=== PATIENT | male | born 1995 | race Two or more races ===

== ENCOUNTER 2023-11-15 13:33 | Inpatient (IN) | payer OTHER ==
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
[2023-11-15 14:14] LABS: Basophils # (A) 0.1 k/uL (0-0.2); Basophils % (A) 1 %; Eosinophils # (A) 0.1 k/uL (0-0.7); Eosinophils % (A) 1 %; HCT 46.2 % (39.0-53.0); HGB 15.2 gm/dL (13.0-17.5); Lymphocytes # (A) 1.9 k/uL (1.0-4.8); Lymphocytes % (A) 29 %; MCH 29.9 pg (25.0-35.0); MCHC 32.8 g/dL (31.0-37.0); MCV 91.1 fL (80.0-100.0); Mean Platelet Volume 7.9; Monocytes # (A) 0.3 k/uL (0-1.0); Monocytes % (A) 5 %; Neutrophils # (A) 4.1 k/uL (1.3-7.7); Neutrophils % (A) 63 %; Platelet Count 242 k/uL (150-450); RBC 5.07 m/uL (4.30-5.90); RDW 12.3 % (11.5-15.5); WBC 6.5 k/uL (3.8-10.6)
[2023-11-15 14:27] LABS: ALT 35 U/L (4-49); AST 60 U/L (17-59); African American GFR (CKD) >90 (>60 ml/min/1.73 sqM); Albumin 4.1 g/dL (3.5-5.0); Alkaline Phosphatase 95 U/L (38-126); Anion Gap 11 mmol/L; Blood Urea Nitrogen 15 mg/dL (9-20); Calcium 8.3 mg/dL (8.4-10.2); Carbon Dioxide 29 mmol/L (22-30); Chloride 110 mmol/L (98-107); Glucose 117 mg/dL (74-99); Non-African American GFR(CKD) >90 (>60 ml/min/1.73 sqM); Potassium 3.4 mmol/L (3.5-5.1); Sodium 150 mmol/L (137-145); Total Bilirubin 0.6 mg/dL (0.2-1.3); Total Protein 6.4 g/dL (6.3-8.2)
[2023-11-15 14:31] LABS: INR 1.3 (<1.2); Partial Thromboplastin Time 25.7 sec (22.0-30.0); Prothrombin Time 14.1 sec (10.0-12.5)
[2023-11-15 14:59] LABS: Alcohol 499 mg/dL
--- NOTE | 2023-11-15 15:44 | XR ---
EXAMINATION TYPE: XR chest 2V DATE OF EXAM: 11/15/2023 COMPARISON: None HISTORY: 28-year-old male confusion, altered mental status, possible overdose TECHNIQUE: AP and lateral views FINDINGS: Heart normal size. Aorta and pulmonary vasculature within normal limits. Hazy densities related to ov erlying soft tissue. No consolidation or pleural effusion. IMPRESSION: No definite acute process. [facility], Workstation: [facility], 11/15/2023 3:42 PM
[2023-11-15] MEDS ORDERED: NALOXONE 0.4 MG/ML 1 ML VIAL IV PRN (16:05)
[2023-11-15] MEDS ORDERED: LORazepam 1 MG TAB PO PRN (16:11)
[2023-11-15] MEDS: POTASSIUM CHLORIDE 10 MEQ in WATER FOR INJECTION 1 100ML.BAG IVPB SCH (16:18)
[2023-11-15] MEDS: DEXTROSE 5%-0.45% NACL 1,000 ML IV ONE (16:18)
[2023-11-15] MEDS: THIAMINE 100 MG/ML 2 ML VIAL IM STA (16:27)
[2023-11-15] MEDS: SODIUM CHLORIDE 0.9% 1,000 ML IV SCH (16:30)
[2023-11-15 16:35] LABS: Amphetamine Screen,Urine Not Detected (NotDetected); Barbiturate Screen,Urine Not Detected (NotDetected); Benzodiazepines Screen,Urine Not Detected (NotDetected); Cocaine Screen,Urine Not Detected (NotDetected); Methadone Screen, Urine Not Detected (NotDetected); Opiate Screen,Urine Not Detected (NotDetected); Oxycodone Screen, Urine Not Detected (NotDetected); Phencyclidine Screen,Urine Not Detected (NotDetected); Tricyclic Antidepressant,Urine Not Detected (NotDetected); Urn Cannabinoid Scrn Not Detected (NotDetected)
[2023-11-15] MEDS ORDERED: LORazepam 2 MG/ML INJ IV PRN ×3 (17:12)
--- NOTE | 2023-11-15 17:21 | P.HPIM ---
History of Present Illness H&P Date: 11/15/23 History of Presenting Illness: Patient is a 28-year-old male with a past medical history of polysubstance abuse and alcohol abuse with previous history of alcohol withdrawal seizures. He presented to the emergency department via EMS and with police escort after being found behind the [place] behind [employer]. Per girlfriend at bedside, patient was reported as a missing person approximately 36 hours prior to being found. Patient reports heavy daily drinking of approximately a pint per day and denies having any polysubstance abuse, however patient's girlfriend does report that his father was concerned as he has a history of using "everything". Patient r eports that he feels "great" and denies having any falls or injuries, states he was just hanging out and drinking a lots of alcohol and his phone so he did not call anyone. Patient currently alert to person, place, time, and situation. He is giggling often and laughing inappropriately at times which is understandable in regards to his alcohol intoxication. No obvious signs of physical injuries noted upon arrival to our facility. Patient underwent evaluation in the emergency department. Vital signs upon arrival show blood pressure 128/82, heart rate 119, respiratory rate 18, temp 98.0 F, and SpO2 of 98% on room air. EKG was completed showing sinus tachycardia at 107 bpm with no noted T wave or ST abnormality showing no signs of acute ischemia upon personal review and interpretation. Chest x-ray completed negative for acute cardiopulmonary process. Labs were completed and reviewed. CBC was unremarkable. Coagulation profile showing elevated PT of 14.1 and INR of 1.3. BMP showing hypernatremia with sodium of 150, hypokalemia with potassium of 3.4, and none anion gap metabolic acidosis with chloride of 110, bicarb of 29, and anion gap of 11. Blood glucose 117. Magnesium normal findings at 2.3. Liver profile showing elevated AST of 60 otherwise normal findings. Serum alcohol level was 499. Urine drug screen was negative. Patient was admitted under our services for alcohol intoxication and pending medical detox. Review of systems: Pertinent positives and negatives as discussed in HPI, a complete review of systems was performed and all other systems are negative. Physical exam: Vital signs reviewed and stable. General: Nontoxic, no distress and appears stated age. Derm: Skin warm and dry, normal coloration for ethnicity. Head: Atraumatic, normocephalic and symmetric. Eyes: EOM's intact, no lid lag, and anicteric sclera Mouth: no lip lesions, mucus membranes moist Cardiovascular: regular rate and rhythm with normal S1S2, no murmur, positive posterior tibial pulses bilaterally, and cap refill < 2 seconds. Lungs: Respirations even, regular, and unlabored on room air. Lungs CTA bilaterally, no rhonchi, no rales, no wheezing, and no accessory muscle usage. Abdominal: soft, nontender to palpation, no guarding, no appreciable organomegaly Ext: ROM intact. No gross muscle atrophy, no edema, no contractures Neuro: Speech clear, face symmetrical and CN II-XII grossly intact with no noted focal neuro deficits Psych: Alert and oriented to person, place, time, and situation. Appropriate and pleasant affect. Assessment and Plan of Care: Alcohol intoxication in active alcoholic Hypernatremia Metabolic acidosis Hypokalemia Elevated INR, secondary to alcohol abuse Elevated liver enzyme, secondary to alcohol abuse History of polysubstance abuse History of alcohol withdrawal seizures -Order placed for monitoring of CIWA scores and patient to be medicated with Ativan 0.5 mg every 4 hours as needed for CIWA score of 4-5, Ativan 1 mg every 4 hours for CIWA score of 6-7, Ativan 2 mg every 3 hours CIWA score of 8-9, and Ativan 2 mg every 2 hours forr CIWA score of 10 or greater. -Continuous IV hydration with D5 0.45% NS at 100 cc/h. Will repeat sodium levels later this evening at 10 PM and again tomorrow morning. -Order placed for potassium chloride 10 mEq IVPB x 4 doses totaling 40 mEq. -Thiamine 100 mg daily, and Multivitamin daily, and Folate 1 mg daily -Seizure, fall, aspiration, and elopement precautions in place. -Urine drug screen -Continued close monitoring of electrolytes and replace as needed. -Telemetry monitoring. Data and imaging reviewed: As stated above in HPI The patient is admitted with an anticipated greater than 2 midnight stay for evaluation of hyponatremia, alcohol intoxication pending withdrawal in active alcoholic CODE STATUS: Full code DVT prophylaxis: Lovenox Anticipated discharge date: Pending clinical course Anticipated discharge place: Home Patient was seen independently by Nurse Practitioner. This document was prepared using [employer] dictation software. Please allow for errors in boxing promoter while rare they do occur. Lj Howard NP rendered care for this patient independently, reviewed the findings and plan as documented in the note above. I did not physically speak with or examine the patient on this date Past Medical History Past Medical History: Seizure Disorder Additional Past Medical History / Comment(s): seizures from ETOH History of Any Multi-Drug Resistant Organisms: None Reported Past Surgical History: No Surgical Hx Reported Past Psychological History: No Psychological Hx Reported Smoking Status: Vaper Past Alcohol Use History: Abuse, Daily, Heavy Past Drug Use History: Opiates - Past Family History Mother Additional Family Medical History / Comment(s): meth use Father Additional Family Medical History / Comment(s): meth use Medications and Allergies Home Medications Medication Instructions Recorded Confirmed Type DULoxetine HCL [Cymbalta] 30 mg PO DAILY 11/15/23 11/15/23 History Allergies Allergy/AdvReac Type Severity Reaction Status Date / Time Penicillins Allergy Severe Anaphylaxis Verified 11/15/23 15:58 shellfish derived [Shellfish] Allergy Severe Anaphylaxis Verified 11/15/23 15:58 Physical Exam Vitals: Vital Signs Temp Pulse Resp BP Pulse Ox 11/15/23 15:16 87 18 114/76 97 11/15/23 13:38 98 F 119 H 18 128/82 98 Intake and Output 11/15/23 11/15/23 11/15/23 06:59 14:59 22:59 Other: Weight 68.039 kg Results CBC & Chem 7: 11/16/23 04:48 11/16/23 04:48 Labs: Abnormal Lab Results - Last 24 Hours (Table) 11/15/23 11/15/23 Range/Units 13:56 13:56 PT 14.1 H (10.0-12.5) sec INR 1.3 H (<1.2) Sodium 150 H (137-145) mmol/L Potassium 3.4 L (3.5-5.1) mmol/L Chloride 110 H (98-107) mmol/L Glucose 117 H (74-99) mg/dL Calcium 8.3 L (8.4-10.2) mg/dL AST 60 H (17-59) U/L Serum Alcohol 499 H* mg/dL
[2023-11-15] MEDS: SODIUM CHLORIDE 0.9% 500 ML 500 ML IV STA (18:28)
[2023-11-15] MEDS: FAMOTIDINE 20 MG TAB PO SCH (20:23)
[2023-11-15 22:32] LABS: African American GFR (CKD) >90 (>60 ml/min/1.73 sqM); Anion Gap 11 mmol/L; Blood Urea Nitrogen 12 mg/dL (9-20); Carbon Dioxide 27 mmol/L (22-30); Chloride 109 mmol/L (98-107); Glucose 117 mg/dL (74-99); Non-African American GFR(CKD) >90 (>60 ml/min/1.73 sqM); Potassium 3.5 mmol/L (3.5-5.1); Sodium 147 mmol/L (137-145)
[2023-11-16 08:47] LABS: HCT 43.2 % (39.6-50.0); HGB 14.7 g/dL (13.0-17.0); MCH 30.2 pg (27.0-32.0); MCV 88.7 FL (80.0-97.0); Mean Platelet Volume 10.6 FL (9.5-12.2); NRBC Per 100 WBC 0 X 10*3/uL (0.00-0.01); Platelet Count 210 X 10*3/uL (140-440); RBC 4.87 X 10*6/uL (4.40-5.60); RDW 11.7 % (11.5-14.5); WBC 5.52 X 10*3/uL (4.50-10.00)
[2023-11-16] MEDS: THIAMINE 100 MG TAB PO SCH (09:33)
[2023-11-16] MEDS: MULTIVITAMINS, THERA 1 EACH TAB PO SCH (09:33)
[2023-11-16] MEDS: FOLIC ACID 1 MG TAB PO SCH (09:33)
[2023-11-16] MEDS: ENOXAPARIN 40 MG/0.4 ML SYRINGE SQ SCH (09:33)
[2023-11-16] MEDS: DULoxetine HCL 30 MG CAPSULE.DR PO SCH (10:14)
[2023-11-16] MEDS: LORazepam 1 MG TAB PO PRN ×2 (10:18→16:49)
[2023-11-16 10:45] LABS: ALT 30 U/L (10-49); AST 44 U/L (14-35); Albumin 3.8 g/dL (3.8-4.9); Albumin/Globulin Ratio 2.11 Ratio (1.60-3.17); Alkaline Phosphatase 105 U/L (41-126); BUN/Creat Ratio 15.71 Ratio (12.00-20.00); Carbon Dioxide 24.2 mmol/L (21.6-31.8); Chloride 109 mmol/L (96-109); Globulin 1.8 g/dL (1.6-3.3); Glucose 95 mg/dL (70-110); Potassium 3.8 mmol/L (3.5-5.5); Sodium 145 mmol/L (135-145); Total Bilirubin 0.7 mg/dL (0.3-1.2); Total Protein 5.6 g/dL (6.2-8.2)
--- NOTE | 2023-11-16 14:02 | P.PN ---
Subjective Progress Note Date: 11/16/23 Hospital course: Patient is a 28-year-old male with a past medical history of polysubstance abuse and alcohol abuse with previous history of alcohol withdrawal seizures. He presented to the emergency department via EMS and with police escort after being found behind the [place] [employer]. Per girlfriend at bedside, patient was reported as a missing person approximately 36 hours prior to being found. Patient reports heavy daily drinking of approximately a pint per day and denies having any polysubstance abuse, however patient's girlfriend does report that his father was concerned as he has a history of using "everything". Patient reports that he feels "great" and denies having any falls or injuries, states he was just hanging out and drinking a lots of alcohol and his phone so he did not call anyone. Patient currently alert to person, place, time, and situation. He is giggling often and laughing inappropriately at times which is understan dable in regards to his alcohol intoxication. No obvious signs of physical injuries noted upon arrival to our facility. Patient underwent evaluation in the emergency department. Vital signs upon arrival show blood pressure 128/82, heart rate 119, respiratory rate 18, temp 98.0 F, and SpO2 of 98% on room air. EKG was completed showing sinus tachycardia at 107 bpm with no noted T wave or ST abnormality showing no signs of acute ischemia upon personal review and interpretation. Chest x-ray completed negative for acute cardiopulmonary process. Labs were completed and reviewed. CBC was unremarkable. Coagulation profile showing elevated PT of 14.1 and INR of 1.3. BMP showing hypernatremia with sodium of 150, hypokalemia with potassium of 3.4, and none anion gap metabolic acidosis with chloride of 110, bicarb of 29, and anion gap of 11. Blood glucose 117. Magnesium normal findings at 2.3. Liver profile showing elevated AST of 60 otherwise normal findings. Serum alcohol level was 499. Urine drug screen was negative. Patient was admitted under our services for alcohol intoxication and pending medical detox. Shortly after admission, patient expressed concerns of suicidal ideations to RN. A petition was completed and placed on patient's chart. Patient placed in suicide precautions and consult was placed to psychiatry. Physical exam: Patient was seen and fully evaluated at bedside this morning. Sitter remains at bedside maintaining safety. Patient with mild tremors and appears fidgety and anxious. Patient informed we will continue with Ativan per CIWA protocol and he is awaiting to see psychiatry. Patient verbalized understanding. Reports feeling nauseous and anxious at this time but denies any other complaints at this time. Vital signs reviewed and stable. General: Nontoxic, no distress and appears stated age. Derm: Skin warm and dry, normal coloration for ethnicity. Head: Atraumatic, normocephalic and symmetric. Eyes: EOM's intact, no lid lag, and anicteric sclera Mouth: no lip lesions, mucus membranes moist Cardiovascular: regular rate and rhythm with normal S1S2, no murmur, positive posterior tibial pulses bilaterally, and cap refill < 2 seconds. Lungs: Respirations even, regular, and unlabored on room air. Lungs CTA bilaterally, no rhonchi, no rales, no wheezing, and no accessory muscle usage. Abdominal: soft, nontender to palpation, no guarding, no appreciable organomegaly Ext: ROM intact. No gross muscle atrophy, no edema, no contractures Neuro: Speech clear, face symmetrical and CN II-XII grossly intact with no noted focal neuro deficits. Mild tremors noted at rest. Psych: Alert and oriented to person, place, time, and situation. Anxious and fidgety. Assessment and Plan of Care: Alcohol intoxication in active alcoholic Hypernatremia Metabolic acidosis Hypokalemia Elevated INR, secondary to alcohol abuse Elevated liver enzyme, secondary to alcohol abuse History of polysubstance abuse History of alcohol withdrawal seizures -Continue monitoring of CIWA scores and patient to be medicated with Ativan 0.5 mg every 4 hours as needed for CIWA score of 4-5, Ativan 1 mg every 4 hours for CIWA score of 6-7, Ativan 2 mg every 3 hours CIWA score of 8-9, and Ativan 2 mg every 2 hours forr CIWA score of 10 or greater. -Hypernatremia resolved after IV fluid hydration with D5.45. Current sodium 145. -Continue thiamine 100 mg daily, and Multivitamin daily, and Folate 1 mg daily -Continue seizure, fall, aspiration, and elopement precautions. -Urine drug screen was negative. -Continued close monitoring of electrolytes and replace as needed. -Telemetry monitoring. Suicidal ideations -Maintain strict suicide precautions. -Psychiatry consulted. Data and imaging reviewed: Morning labs completed and reviewed. CBC unremarkable. BMP showing resolution of hypernatremia with morning sodium of 145. Liver profile showing elevated AST of 44 otherwise normal findings. Vital signs reviewed. Blood pressure 115/72, heart rate 88, respiratory rate 16, temp 98.1 F, and SpO2 of 98% on room air. CODE STATUS: Full code DVT prophylaxis: Lovenox Anticipated discharge date: Pending clinical course Anticipated discharge place: Home Patient was seen independently by Nurse Practitioner. This document was prepared using [employer] dictation software. Please allow for errors in watch mechanic while rare they do occur. Lj Howard NP rendered care for this patient independently, reviewed the findings and plan as documented in the note above. I did not physically speak with or examine the patient on this date Objective - Vital Signs Vital signs: Vital Signs Temp 98.1 F 11/16/23 02:10 Pulse 70 11/16/23 02:10 Resp 17 11/16/23 02:10 BP 125/77 11/16/23 02:10 Pulse Ox 98 11/16/23 02:10 FiO2 Intake & Output 11/15/23 11/16/23 11/16/23 18:59 06:59 18:59 Intake Total 1200 Balance 1200 Weight 68.039 kg Intake: Oral 1200 Other: Voiding Method Toilet # Voids 6 - Labs CBC & Chem 7: 11/16/23 04:48 11/16/23 04:48 Labs: Abnormal Lab Results - Last 24 Hours (Table) 11/15/23 11/15/23 11/15/23 Range/Units 13:56 13:56 21:55 PT 14.1 H (10.0-12.5) sec INR 1.3 H (<1.2) Sodium 150 H 147 H (137-145) mmol/L Potassium 3.4 L (3.5-5.1) mmol/L Chloride 110 H 109 H (98-107) mmol/L Creatinine 0.63 L (0.66-1.25) mg/dL Glucose 117 H 117 H (74-99) mg/dL Calcium 8.3 L 8.0 L (8.4-10.2) mg/dL AST 60 H (17-59) U/L Serum Alcohol 499 H* mg/dL
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
--- NOTE | 2023-11-17 16:43 | P.PN ---
Subjective Progress Note Date: 11/17/23 Hospital course: Patient is a 28-year-old male with a past medical history of polysubstance abuse and alcohol abuse with previous history of alcohol withdrawal seizures. He presented to the emergency department via EMS and with police escort after being found behind the [employer] behind [employer]. Per girlfriend at bedside, patient was reported as a missing person approximately 36 hours prior to being found. Patient reports heavy daily drinking of approximately a pint per day and denies having any polysubstance abuse, however patient's girlfriend does report that his father was concerned as he has a history of using "everything". Patient reports that he feels "great" and denies having any falls or injuries, states he was just hanging out and drinking a lots of alcohol and his phone so he did not call anyone. Patient currently alert to person, place, time, and situation. He is giggling often and laughing inappropriately at times which is understan dable in regards to his alcohol intoxication. No obvious signs of physical injuries noted upon arrival to our facility. Patient underwent evaluation in the emergency department. Vital signs upon arrival show blood pressure 128/82, heart rate 119, respiratory rate 18, temp 98.0 F, and SpO2 of 98% on room air. EKG was completed showing sinus tachycardia at 107 bpm with no noted T wave or ST abnormality showing no signs of acute ischemia upon personal review and interpretation. Chest x-ray completed negative for acute cardiopulmonary process. Labs were completed and reviewed. CBC was unremarkable. Coagulation profile showing elevated PT of 14.1 and INR of 1.3. BMP showing hypernatremia with sodium of 150, hypokalemia with potassium of 3.4, and none anion gap metabolic acidosis with chloride of 110, bicarb of 29, and anion gap of 11. Blood glucose 117. Magnesium normal findings at 2.3. Liver profile showing elevated AST of 60 otherwise normal findings. Serum alcohol level was 499. Urine drug screen was negative. Patient was admitted under our services for alcohol intoxication and pending medical detox. Shortly after admission, patient expressed concerns of suicidal ideations to RN. A petition was completed and placed on patient's chart. Patient placed in suicide precautions and consult was placed to psychiatry. Physical exam: Patient was seen and fully evaluated at bedside this morning. Sitter remains at bedside maintaining safety/suicide precautions. Patient with mild tremors and expresses feeling anxious and nauseous this morning.. Current CIWA score is 8. Vital signs reviewed and stable. General: Nontoxic, no distress and appears stated age. Derm: Skin warm and dry, normal coloration for ethnicity. Head: Atraumatic, normocephalic and symmetric. Eyes: EOM's intact, no lid lag, and anicteric sclera Mouth: no lip lesions, mucus membranes moist Cardiovascular: regular rate and rhythm with normal S1S2, no murmur, positive posterior tibial pulses bilaterally, and cap refill < 2 seconds. Lungs: Respirations even, regular, and unlabored on room air. Lungs CTA bilaterally, no rhonchi, no rales, no wheezing, and no accessory muscle usage. Abdominal: soft, nontender to palpation, no guarding, no appreciable organomegaly Ext: ROM intact. No gross muscle atrophy, no edema, no contractures Neuro: Speech clear, face symmetrical and CN II-XII grossly intact with no noted focal neuro deficits. Mild tremors noted at rest. Psych: Alert and oriented to person, place, time, and situation. Anxious and fidgety. Assessment and Plan of Care: Alcohol intoxication in active alcoholic Hypernatremia Metabolic acidosis Hypokalemia Elevated INR, secondary to alcohol abuse Elevated liver enzyme, secondary to alcohol abuse History of polysubstance abuse History of alcohol withdrawal seizures -Continue monitoring of CIWA scores and patient to be medicated with Ativan 0.5 mg every 4 hours as needed for CIWA score of 4-5, Ativan 1 mg every 4 hours for CIWA score of 6-7, Ativan 2 mg every 3 hours CIWA score of 8-9, and Ativan 2 mg every 2 hours forr CIWA score of 10 or greater. Patient has received a total of 9 mg of Ativan over the past 24 hours. Current CIWA score is 8. -Hypernatremia resolved after IV fluid hydration with D5.45. Current sodium 145. -Continue thiamine 100 mg daily, and Multivitamin daily, and Folate 1 mg daily -Continue seizure, fall, aspiration, and elopement precautions. -Urine drug screen was negative. -Continued close monitoring of electrolytes and replace as needed. -Telemetry monitoring. Suicidal ideations -Maintain strict suicide precautions. -Psychiatry consulted and evaluated patient recommending inpatient transfer to mental health unit once medically stable. Patient has required a total of 9 mg of Ativan over the past 24 hours for CIWA protocol, will monitor for improvement and plan to discharge to inpatient mental health unit likely tomorrow. Data and imaging reviewed: Morning labs completed and reviewed. CBC unremarkable. BMP showing resolution of hypernatremia with morning sodium of 145. Liver profile showing elevated AST of 44 otherwise normal findings. Vital signs reviewed. Blood pressure 145/75, heart rate 55, respiratory rate 17, temp 98.4 F, and SpO2 100% on room air. CODE STATUS: Full code DVT prophylaxis: Lovenox Anticipated discharge date: Pending clinical course, likely tomorrow pending improving CIWA scores. Anticipated discharge place: Discharge to inpatient mental health unit Patient was seen independently by Nurse Practitioner. This document was prepared using [employer] dictation software. Please allow for errors in tool carrier while rare they do occur. I reviewed the documentation as provided by the YOMI above, who is the original author of this note. I agree with the documented assessment and plan, with the following changes: none Objective - Vital Signs Vital signs: Vital Signs Temp 98.7 F 11/16/23 19:22 Pulse 76 11/16/23 19:22 Resp 16 11/16/23 19:22 BP 118/74 11/16/23 19:22 Pulse Ox 98 11/16/23 19:22 FiO2 Intake & Output 11/16/23 11/17/23 11/17/23 18:59 06:59 18:59 Intake Total 450 Balance 450 Intake: Oral 450 Other: Voiding Method Toilet # Voids 3 - Labs CBC & Chem 7: 11/16/23 04:48 11/16/23 04:48 Labs: Abnormal Lab Results - Last 24 Hours (Table) 11/16/23 Range/Units 04:48 Calcium 8.0 L (8.7-10.3) mg/dL AST 44 H (14-35) U/L Total Protein 5.6 L (6.2-8.2) g/dL
[2023-11-18 08:26] VITALS: RESP 20
[2023-11-18 08:55] LABS: HCT 42.8 % (39.6-50.0); HGB 14.4 g/dL (13.0-17.0); MCH 29.8 pg (27.0-32.0); MCHC 33.6 g/dL (32.0-37.0); MCV 88.6 FL (80.0-97.0); Mean Platelet Volume 11.2 FL (9.5-12.2); NRBC Per 100 WBC 0 X 10*3/uL (0.00-0.01); Platelet Count 195 X 10*3/uL (140-440); RBC 4.83 X 10*6/uL (4.40-5.60); RDW 11.7 % (11.5-14.5); WBC 5.01 X 10*3/uL (4.50-10.00)
--- NOTE | 2023-11-18 08:58 | P.DS ---
Providers Date of admission: 11/15/23 16:13 Expected date of discharge: 11/18/23 Attending physician: James Rush Consults: 11/16/23 09:19 Consult Physician Routine Consulting Provider: Tremayne Parra Consult Reason/Comments: suicidal ideation with a plan Do you want consulting provider notified?: Yes Primary care physician: Stated None Hospital Course: Discharge Diagnosis: Alcohol withdraw Alcohol intoxication in active alcoholic upon arrival Hypernatremia, resolved with IV fluid hydration Metabolic acidosis, resolved with IV fluid hydration Hypokalemia, resolved after replacement Elevated INR, secondary to alcohol abuse Elevated liver enzyme, secondary to alcohol abuse History of polysubstance abuse History of alcohol withdrawal seizures Suicidal ideations. Maintain strict suicide precautions. Psychiatry consulted and evaluated patient recommending inpatient transfer to mental health unit once medically stable. Hospital course: Patient is a 28-year-old male with a past medical history of polysubstance abuse and alcohol abuse with previous history of alcohol withdrawal seizures. He presented to the emergency department via EMS and with police escort after being found behind the [facility]. Per girlfriend at bedside, patient was reported as a missing person approximately 36 hours prior to being found. Patient reports heavy daily drinking of approximately a pint per day and denies having any polysubstance abuse, however patient's girlfriend does report that his father was concerned as he has a history of using "everything". Patient reports that he feels "great" and denies having any falls or injuries, states he was just hanging out and drinking a lots of alcohol and his phone so he did not call anyone. Patient currently alert to person, place, time, and situation. He is giggling often and laughing inappropriately at times which is understandable in regards to his alcohol intoxication. No obvious signs of physical injuries noted upon arrival to our facility. Patient underwent evaluation in the emergency department. Vital signs upon arrival show blood pressure 128/82, heart rate 119, respiratory rate 18, temp 98.0 F, and SpO2 of 98% on room air. EKG was completed showing sinus tachycardia at 107 bpm with no noted T wave or ST abnormality showing no signs of acute ischemia upon personal review and interpretation. Chest x-ray completed negative for acute cardiopulmonary process. Labs were completed and reviewed. CBC was unremarkable. Coagulation profile showing elevated PT of 14.1 and INR of 1.3. BMP showing hypernatremia with sodium of 150, hypokalemia with potassium of 3.4, and none anion gap metabolic acidosis with chloride of 110, bicarb of 29, and anion gap of 11. Blood glucose 117. Magnesium normal findings at 2.3. Liver profile showing elevated AST of 60 otherwise normal findings. Serum alcohol level was 499. Urine drug screen was negative. Patient was admitted under our services for alcohol intoxication and pending medical detox. Shortly after admission, patient expressed concerns of suicidal ideations to RN. A petition was completed and placed on patient's chart. Patient placed in suicide precautions and consult was placed to psychiatry. Psychiatry consulted and evaluated patient recommending inpatient transfer to mental health unit once medically stable. Patient underwent 3 night hospitalization for medical detox and is medically stable for discharge to inpatient psychiatric unit at this time. Patient has not required Ativan in greater than 12 hours. Patient updated on plans for discharge to inpatient mental health unit and all questions answered. Patient medically stable for discharge to inpatient psychiatric unit at this time. Physical exam: Vital signs reviewed and stable. General: Nontoxic, no distress and appears stated age. Derm: Skin warm and dry, normal coloration for ethnicity. Head: Atraumatic, normocephalic and symmetric. Eyes: EOM's intact, no lid lag, and anicteric sclera Mouth: no lip lesions, mucus membranes moist Cardiovascular: regular rate and rhythm with normal S1S2, no murmur, positive posterior tibial pulses bilaterally, and cap refill < 2 seconds. Lungs: Respirations even, regular, and unlabored on room air. Lungs CTA bilaterally, no rhonchi, no rales, no wheezing, and no accessory muscle usage. Abdominal: soft, nontender to palpation, no guarding, no appreciable organomegaly Ext: ROM intact. No gross muscle atrophy, no edema, no contractures Neuro: Speech clear, face symmetrical and CN II-XII grossly intact with no noted focal neuro deficits. No tremors noted at time of assessment. Psych: Alert and oriented to person, place, time, and situation. Anxious and fidgety. A total of 34 minutes of time were spent preparing this complex discharge summary. Pt was discharged on 11/18/2023 at 8:57 AM. Patient was seen independently by Nurse Practitioner. This document was prepared using [employer] dictation software. Please allow for errors in paper cone machine operator while rare they do occur. I reviewed the documentation as provided by the YOMI above, who is the original author of this note. I agree with the documented assessment and plan, with the following changes: none Patient Condition at Discharge: Stable Plan - Discharge Summary New Discharge Prescriptions: New Multivitamins, Thera [Multivitamin (formulary)] 1 each PO DAILY tab Folic Acid 1 mg PO DAILY tab Thiamine [Vitamin B-1] 100 mg PO DAILY tab Continue DULoxetine HCL [Cymbalta] 30 mg PO DAILY Discharge Medication List DULoxetine HCL [Cymbalta] 30 mg PO DAILY 11/15/23 [History] Folic Acid 1 mg PO DAILY tab 11/18/23 [Rx] Multivitamins, Thera [Multivitamin (formulary)] 1 each PO DAILY tab 11/18/23 [Rx] Thiamine [Vitamin B-1] 100 mg PO DAILY tab 11/18/23 [Rx] Follow up Appointment(s)/Referral(s): Roz Echevarria MD [REFERRING] - 1 Week (Please call and schedule appointment at residency clinic for establishment of care by PCP and follow up post hospitalization) Patient Instructions/Handouts: Depression (DC), Abuse of Alcohol (DC), Alcohol Withdrawal (DC), Help Prevent Suicide (DC) Discharge Disposition: HOME SELF-CARE
[2023-11-18 09:18] LABS: ALT 26 U/L (10-49); AST 28 U/L (14-35); Albumin 3.8 g/dL (3.8-4.9); Alkaline Phosphatase 117 U/L (41-126); BUN/Creat Ratio 8.86 Ratio (12.00-20.00); Blood Urea Nitrogen 6.2 mg/dL (9.0-27.0); Calcium 8.3 mg/dL (8.7-10.3); Carbon Dioxide 26.1 mmol/L (21.6-31.8); Chloride 108 mmol/L (96-109); Globulin 1.9 g/dL (1.6-3.3); Glucose 94 mg/dL (70-110); Magnesium 2.1 mg/dL (1.5-2.4); Potassium 3.5 mmol/L (3.5-5.5); Sodium 142 mmol/L (135-145); Total Bilirubin 0.6 mg/dL (0.3-1.2); Total Protein 5.7 g/dL (6.2-8.2)
[2023-11-18] MEDS: LORazepam 0.5 MG TAB PO PRN (13:24)
[2023-11-18 14:56] VITALS: BP 131/75; PULSE 92; TEMP 98.5
== END 2023-11-18 16:25 | disposition home or self-care (01) | DRG 897 ==
LOC: EC 13:33 → 4SSUR 16:13
PROVIDERS: ADMIT Student in an Organized Health Care Education/Training Program; ATTEND Student in an Organized Health Care Education/Training Program
DX: F10.229 Alcohol dependence with intoxication, unspecified (principal); E87.0 Hyperosmolality and hypernatremia; E87.20 Acidosis, unspecified; F33.2 Major depressive disorder, recurrent severe without psychotic features; F11.10 Opioid abuse, uncomplicated; F10.239 Alcohol dependence with withdrawal, unspecified; E87.6 Hypokalemia; F41.9 Anxiety disorder, unspecified; F17.290 Nicotine dependence, other tobacco product, uncomplicated; R79.1 Abnormal coagulation profile; R74.01 Elevation of levels of liver transaminase levels; Y90.8 Blood alcohol level of 240 mg/100 ml or more; Z79.899 Other long term (current) drug therapy; Z65.3 Problems related to other legal circumstances; Z91.51 Personal history of suicidal behavior; Z81.8 Family history of other mental and behavioral disorders; Z86.69 Personal history of other diseases of the nervous system and sense organs
CPT/HCPCS: 36415; 71046; 80048; 80053; 80306; 80320; 82075; 83735; 85025; 85027; 85610; 85730; 87635; 93005; 96365; 96372; 99285

== ENCOUNTER 2023-11-19 00:44 | Emergency (ER) | payer SELFPAY ==
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
[2023-11-19] MEDS: HALOPERIDOL LACTATE 5 MG/ML 1 ML VIAL IM STA (01:06)
[2023-11-19] MEDS: LORazepam 2 MG/ML INJ IM STA (01:06)
[2023-11-19 02:07] VITALS: RESP 18; TEMP 98.2
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
[2023-11-19 04:19] LABS: Basophils % (A) 0 %; Eosinophils % (A) 0 %; HCT 47.3 % (39.0-53.0); HGB 15.3 gm/dL (13.0-17.5); Lymphocytes # (A) 1.5 k/uL (1.0-4.8); Lymphocytes % (A) 20 %; MCH 29.5 pg (25.0-35.0); MCHC 32.3 g/dL (31.0-37.0); MCV 91.3 fL (80.0-100.0); Mean Platelet Volume 8.2; Monocytes # (A) 0.3 k/uL (0-1.0); Monocytes % (A) 4 %; Neutrophils # (A) 5.6 k/uL (1.3-7.7); Neutrophils % (A) 74 %; Platelet Count 220 k/uL (150-450); RBC 5.18 m/uL (4.30-5.90); RDW 12.5 % (11.5-15.5); WBC 7.5 k/uL (3.8-10.6)
[2023-11-19 04:29] LABS: Acetaminophen <10.0 ug/mL; Salicylate <1.0 mg/dL
[2023-11-19 04:30] LABS: ALT 51 U/L (4-49); AST 104 U/L (17-59); African American GFR (CKD) >90 (>60 ml/min/1.73 sqM); Albumin 4.3 g/dL (3.5-5.0); Alkaline Phosphatase 102 U/L (38-126); Anion Gap 10 mmol/L; Blood Urea Nitrogen 7 mg/dL (9-20); Calcium 8.7 mg/dL (8.4-10.2); Carbon Dioxide 29 mmol/L (22-30); Chloride 111 mmol/L (98-107); Glucose 103 mg/dL (74-99); Non-African American GFR(CKD) >90 (>60 ml/min/1.73 sqM); Potassium 3.9 mmol/L (3.5-5.1); Sodium 150 mmol/L (137-145); Total Bilirubin 0.5 mg/dL (0.2-1.3); Total Protein 6.8 g/dL (6.3-8.2)
[2023-11-19 05:00] LABS: Alcohol 281 mg/dL
[2023-11-19 05:49] VITALS: BP 112/72; PULSE 110
== END 2023-11-19 05:45 | disposition other institution (70) ==
LOC: EC 00:44
CPT/HCPCS: 36415; 70450; 70486; 72125; 80053; 80143; 80179; 80320; 82140; 84443; 85025; 93005; 96372; 99285

== ENCOUNTER 2023-11-25 19:56 | Emergency (ER) | payer SELFPAY ==
[2023-11-25 20:07] VITALS: BP 145/90; PULSE 87; RESP 18; TEMP 97.6
[2023-11-25 20:29] LABS: Basophils % (A) 0 %; Eosinophils # (A) 0.1 k/uL (0-0.7); Eosinophils % (A) 1 %; HCT 47.8 % (39.0-53.0); HGB 15.3 gm/dL (13.0-17.5); Lymphocytes # (A) 1.3 k/uL (1.0-4.8); Lymphocytes % (A) 19 %; MCH 29.9 pg (25.0-35.0); MCHC 31.9 g/dL (31.0-37.0); MCV 93.7 fL (80.0-100.0); Mean Platelet Volume 7.7; Monocytes # (A) 0.4 k/uL (0-1.0); Monocytes % (A) 6 %; Neutrophils # (A) 5.1 k/uL (1.3-7.7); Neutrophils % (A) 72 %; Platelet Count 287 k/uL (150-450); RDW 13.1 % (11.5-15.5); WBC 7.1 k/uL (3.8-10.6)
[2023-11-25 20:41] LABS: ALT 130 U/L (4-49); AST 66 U/L (17-59); African American GFR (CKD) >90 (>60 ml/min/1.73 sqM); Albumin 4.8 g/dL (3.5-5.0); Alkaline Phosphatase 101 U/L (38-126); Anion Gap 5 mmol/L; Blood Urea Nitrogen 13 mg/dL (9-20); Calcium 9.7 mg/dL (8.4-10.2); Carbon Dioxide 32 mmol/L (22-30); Chloride 104 mmol/L (98-107); Glucose 102 mg/dL (74-99); Magnesium 2.5 mg/dL (1.6-2.3); Non-African American GFR(CKD) >90 (>60 ml/min/1.73 sqM); Potassium 4.2 mmol/L (3.5-5.1); Sodium 141 mmol/L (137-145); Total Bilirubin 0.5 mg/dL (0.2-1.3); Total Protein 7.5 g/dL (6.3-8.2)
[2023-11-25 20:49] LABS: Partial Thromboplastin Time 24.6 sec (22.0-30.0); Prothrombin Time 11.3 sec (10.0-12.5)
--- NOTE | 2023-11-25 20:57 | XR ---
EXAMINATION TYPE: XR chest 2V DATE OF EXAM: 11/25/2023 8:39 PM CLINICAL INDICATION: Male, 28 years old with history of Chest Pain; [facility] COMPARISON: Chest radiographs from 11/15/2023 TECHNIQUE: XR chest 2V Frontal view of the chest. FINDINGS: Lungs/Pleura: There is no evidence of pleural effusion, focal consolidation, or pneumothorax. Pulmonary vascularity: Unremarkable. Heart/mediastinum: Cardiomediastinal silhouette is unremarkable. Musculoskeletal: No acute osseous pathology. IMPRESSION: No acute cardiopulmonary disease/process. [facility] Sarwat Pino, , 11/25/2023 8:55 PM
--- NOTE | 2023-11-25 21:23 | ED ---
Chest Pain HPI - General Chief Complaint: Chest Pain Stated Complaint: Chest Pain Time Seen by Provider: 11/25/23 20:10 Source: patient, RN notes reviewed Mode of arrival: ambulatory Limitations: no limitations - History of Present Illness Initial Comments: 28-year-old male presents emergency department from [facility] for chief complaint of anterior chest wall pain. Patient states that he has been having symptoms of chest pain with radiation into his left mid chest feels like his heart has been racing. Patient states that he was evaluated emergency department for this recently with no acute findings. Patient states that he does have a history of asthma and endorses mild coughing. Denies shortness of breath, difficulty breathing, headaches, nausea, vomiting, fevers, chills, rhinorrhea. - Related Data Home Medications Medication Instructions Recorded Confirmed DULoxetine HCL [Cymbalta] 30 mg PO DAILY 11/15/23 11/15/23 Previous Rx's Medication Instructions Recorded Folic Acid 1 mg PO DAILY tab 11/18/23 Multivitamins, Thera [Multivitamin 1 each PO DAILY tab 11/18/23 (formulary)] Thiamine [Vitamin B-1] 100 mg PO DAILY tab 11/18/23 Albuterol Inhaler [Ventolin Hfa 1 - 2 puff INHALATION Q6H PRN #1 11/25/23 Inhaler] each Allergies Allergy/AdvReac Type Severity Reaction Status Date / Time Penicillins Allergy Severe Anaphylaxis Verified 11/25/23 20:07 shellfish derived [Shellfish] Allergy Severe Anaphylaxis Verified 11/25/23 20:07 Review of Systems ROS Statement: Those systems with pertinent positive or pertinent negative responses have been documented in the HPI. ROS Other: All systems not noted in ROS Statement are negative. Past Medical History Past Medical History: Asthma, Seizure Disorder Additional Past Medical History / Comment(s): seizures from ETOH History of Any Multi-Drug Resistant Organisms: None Reported Past Surgical History: No Surgical Hx Reported Past Psychological History: No Psychological Hx Reported Smoking Status: Vaper Past Alcohol Use History: Abuse, Daily, Heavy Past Drug Use History: Opiates - Past Family History Mother Additional Family Medical History / Comment(s): meth use Father Additional Family Medical History / Comment(s): meth use General Exam Limitations: no limitations General appearance: alert, in no apparent distress Head exam: Present: atraumatic, normocephalic, normal inspection ENT exam: Present: normal exam, mucous membranes moist Neck exam: Present: normal inspection. Absent: tenderness, meningismus, lymphadenopathy Respiratory exam: Present: normal lung sounds bilaterally. Absent: respiratory distress, wheezes, rales, rhonchi, stridor Cardiovascular Exam: Present: regular rate, normal rhythm, normal heart sounds. Absent: systolic murmur, diastolic murmur, rubs, gallop, clicks GI/Abdominal exam: Present: soft, normal bowel sounds. Absent: distended, tenderness, guarding, rebound, rigid Extremities exam: Present: normal inspection, full ROM, normal capillary refill. Absent: tenderness, pedal edema, joint swelling, calf tenderness Back exam: Present: normal inspection Skin exam: Present: warm, dry, intact, normal color. Absent: rash Course Vital Signs 11/25/23 20:05 Temperature 97.6 F Pulse Rate 87 Respiratory 18 Rate Blood Pressure 145/90 O2 Sat by Pulse 99 Oximetry Chest Pain MDM - MDM Was pt. sent in by a medical professional or institution (, PA, WIRE DROPPER, urgent care, hospital, or prison...) When possible be specific @ -No Did you speak to anyone other than the patient for history (EMS, parent, family, police, friend...)? What history was obtained from this source @ -No Did you review nursing and triage notes (agree or disagree)? Why? @ -I reviewed and agree with nursing and triage notes Were old charts reviewed (outside hosp., previous admission, EMS record, old EKG, old radiological studies, urgent care reports/EKG's, prison records)? Report findings @ -No old charts were reviewed Differential Diagnosis (chest pain, altered mental status, abdominal pain women, abdominal pain men, vaginal bleeding, weakness, fever, dyspnea, syncope, headache, dizziness, GI bleed, back pain, seizure, CVA, palpatations, mental health, musculoskeletal)? @ -Differential Chest Pain: Stable Angina, Unstable Angina, STEMI, NSTEMI Aortic Dissection, Pneumothorax, Musculoskeletal, Esophageal Spasm GERD, Cholecystitis, Pancreatitis, Zoster, this is not meant to be an all-inclusive list. EKG interpreted by me (3pts min.). @ -As above X-rays interpreted by me (1pt min.). @ -X-ray no acute cardiopulmonary process or disease CT interpreted by me (1pt min.). @ -None done U/S interpreted by me (1pt. min.). @ -None done What testing was considered but not performed or refused? (CT, X-rays, U/S, labs)? Why? @ -None What meds were considered but not given or refused? Why? @ -None Did you discuss the management of the patient with other professionals (professionals i.e. DrAndrew, PA, WIRE DROPPER, lab, RT, psych nurse, social organization professor, refiner operator, teacher, chief contract officer, pillowcase sewer)? Give summary @ -No Was smoking cessation discussed for >3mins.? @ -No Was critical care preformed (if so, how long)? @ -No Were there social determinants of health that impacted care today? How? (Homelessness, low income, unemployed, alcoholism, drug addiction, transportation, low edu. Level, literacy, decrease access to med. care, correction, rehab)? @ -No Was there de-escalation of care discussed even if they declined (Discuss DNR or withdrawal of care, Hospice)? DNR status @ -No What co-morbidities impacted this encounter? (DM, HTN, Smoking, COPD, CAD, Cancer, CVA, ARF, Chemo, Hep., AIDS, mental health diagnosis, sleep apnea, morbid obesity)? @ -None Was patient admitted / discharged? Hospital course, mention meds given and route, prescriptions, significant lab abnormalities, going to OR and other pertinent info. @ -Discharged. 28-year-old male with chest pain. Patient's vitals are stable and EKG reveals sinus rhythm. There are no acute examination findings clinically. Patient's laboratory studies are grossly unremarkable including CBC, CMP, troponin, coagulation profile. Patient's heart score reveals minimal clinical concern for adverse cardiac event occurring within the next few weeks. There is minimal clinical concern for further cardiac pathology at this time and patient is stable for discharge back to [facility]. On discussion of examination findings and laboratory studies with the patient states that he is feeling much better knowing that there are no acute cardiac complications occurring. All questions answered at bedside and strict return prior discussed with the patient is verbalized understanding. Case discussed with Dr. Gallegos Undiagnosed new problem with uncertain prognosis? @ -No Drug Therapy requiring intensive monitoring for toxicity (Heparin, Nitro, Insulin, Cardizem)? @ -No Were any procedures done? @ -No Diagnosis/symptom? @ -chest pain Acute, or Chronic, or Acute on Chronic? @ -Acute Uncomplicated (without systemic symptoms) or Complicated (systemic symptoms)? @ -Uncomplicated Side effects of treatment? @ -No Exacerbation, Progression, or Severe Exacerbation? @ -No Poses a threat to life or bodily function? How? (Chest pain, [place], [place], pneumonia, PE, COPD, DKA, ARF, appy, cholecystitis, CVA, Diverticulitis, Homicidal, Suicidal, threat to staff... and all critical care pts) @ -No Disposition Clinical Impression: Chest pain Disposition: HOME SELF-CARE Condition: Good Instructions (If sedation given, give patient instructions): Chest Pain (ED) Additional Instructions: Return to the emergency department for any new or worsening symptoms. Recommend that you use rescue inhaler as needed. Prescriptions: Albuterol Inhaler [Ventolin Hfa Inhaler] 1 - 2 puff INHALATION Q6H PRN #1 each PRN Reason: Shortness Of Breath Is patient prescribed a controlled substance at d/c from ED?: No Referrals: None,Stated [Primary Care Provider] - 1-2 days Time of Disposition: 21:23
== END 2023-11-25 21:56 | disposition home or self-care (01) ==
LOC: EC 19:56
DX: R07.9 Chest pain, unspecified
CPT/HCPCS: 36415; 71046; 80053; 83735; 84484; 85025; 85610; 85730; 93005; 99285